=== PATIENT | female | born 1985 | race African-American/Black ===

== ENCOUNTER 2020-04-01 08:17 | Emergency (ER) | payer BC ==
[2020-04-01] MEDS ORDERED: dexAMETHasone 10 MG/ML VIAL ONE (09:14)
[2020-04-01] MEDS ORDERED: MEPERIDINE HCL 25 MG/ML SYR ONE (09:14)
[2020-04-01] MEDS ORDERED: NA CHLORIDE 0.9% 1,000 ML ONE (09:14)
[2020-04-01] MEDS ORDERED: MORPHINE 4 MG/ML SYR ONE (09:30)
[2020-04-01 09:31] LABS: Absolute Lymphocytes (CBC) 1.5 K/uL (0.7-4.9); Basophils % 0.6 % (0-1.3); Hematocrit 41.9 % (36.0-45.0); MPV 9.6 fL (7.6-11.3); RBC Red Blood Cell Count 5.13 M/uL (3.86-4.86)
[2020-04-01 09:37] LABS: ALT/SGPT 50 U/L (12-78); AST/SGOT 34 U/L (15-37); Albumin 3.6 g/dL (3.4-5.0); Alkaline Phosphatase 98 U/L (45-117); BUN Blood Urea Nitrogen 8 mg/dL (7-18); Bicarbonate 27 mmol/L (21-32); Bilirubin Direct 0.1 mg/dL (0-0.2); Bilirubin Total 0.6 mg/dL (0.2-1.0); Glucose Level 96 mg/dL (74-106); Potassium 3.7 mmol/L (3.5-5.1); Protein, Total 7.8 g/dL (6.4-8.2); Sodium Level 143 mmol/L (136-145)
--- NOTE | 2020-04-01 10:00 | RAD REPORT ---
EXAM DESCRIPTION: CT - Head Brain Wo Cont - 04/01/2020 9:34 am CLINICAL HISTORY: HEADACHE COMPARISON: No comparisons TECHNIQUE: Axial 5 mm thick images of the head were obtained without IV contrast. All CT scans are performed using dose optimization technique as appropriate and may include automated exposure control or mA/KV adjustment according to patient size. FINDINGS: No intracranial hemorrhage, mass, edema or shift of mid-line structures. No acute infarcti on changes seen. No abnormal extra-axial fluid collections. Ventricles are normal. Mastoid air cells and visualized portions of the paranasal sinuses are clear. No acute bony findings. IMPRESSION: Negative non-contrast CT head examination.
[2020-04-01 10:22] LABS: SARS-COV-2 RT PCR NEGATIVE (NEGATIVE)
--- NOTE | 2020-04-01 10:26 | EDPHYS ---
Physician Documentation [facility] Name: Sonia Perera Age: 35 yrs Sex: Female : 1985 Arrival Date: 04/01/2020 Time: 08: Bed 20 Private MD: ED Physician Jose Bateman HPI: 04/01 09:39 This 35 yrs old Black Female presents to ER via Ambulatory with complaints of Headache, rn Arm Problem, Facial Tightness. 09:39 The patient complains of pain to the forehead and left head. The patient describes the rn headache as aching. Onset: The symptoms/episode began/occurred 3 day(s) ago. Associated signs and symptoms: Pertinent positives: paresthesias, Pertinent negatives: altered mental status, fever, neck stiffness, rash, vision loss, vomiting, weakness, vertigo. Severity of symptoms: At its worst the pain was moderate, in the emergency department the pain is unchanged. The symptoms are alleviated by nothing. the symptoms are aggravated by nothing. The patient has not experienced similar symptoms in the past. The patient has not recently seen a physician. Reports left sided headache for 3 days, no hx of migraines, no head trauma, no fever/vomiting/focal weakness/vision loss. Denies famhx of early stroke/brain tumor/aneurysm. Reports initially helped with OTC meds but now not helping. Reports left face "feels weird", but not weak. Reports intermittent tingling left arm as well, no involvement of left leg. . 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 - Social history:: Smoking status: Patient denies any tobacco usage or history of. - Family history:: not pertinent. - Hospitalizations: : No recent hospitalization is reported. ROS: 09:39 Constitutional: Negative for fever, chills, and weight loss, Eyes: Negative for injury, rn pain, redness, and discharge, ENT: Negative for injury, pain, and discharge, Neck: Negative for injury, pain, and swelling, Cardiovascular: Negative for chest pain, palpitations, and edema, Respiratory: Negative for shortness of breath, cough, wheezing, and pleuritic chest pain, Abdomen/GI: Negative for nausea, vomiting, diarrhea, and constipation, Back: Negative for injury and pain, MS/Extremity: Negative for injury and deformity, Skin: Negative for injury, rash, and discoloration, Neuro: Negative for weakness, and seizure. Exam: 09:39 Constitutional: This is a well developed, well nourished patient who is awake, alert, rn and in no acute distress. Head/Face: Normocephalic, atraumatic. Eyes: Pupils equal round and reactive to light, extra-ocular motions intact. Lids and lashes normal. Conjunctiva and sclera are non-icteric and not injected. Cornea within normal limits. Periorbital areas with no swelling, redness, or edema. Neck: Trachea midline, no masses palpated, and no cervical lymphadenopathy. Supple, full range of motion without nuchal rigidity, or vertebral point tenderness. No Meningismus. Cardiovascular: Regular rate and rhythm. No pulse deficits. Respiratory: No increased work of breathing, no retractions or nasal flaring. Abdomen/GI: soft, non-tender Skin: Warm, dry with normal turgor. Normal color with no rashes, no lesions, and no evidence of cellulitis. MS/ Extremity: Pulses equal, no cyanosis. Neurovascular intact. Full, normal range of motion. Equal circumference. Neuro: Awake and alert, GCS 15, oriented to person, place, time, and situation. Cranial nerves II-XII grossly intact. Motor strength 5/5 in all extremities. Sensory grossly intact. Cerebellar exam normal. Normal gait. Vital Signs: 08:25 BP 132 / 84; Pulse 80; Resp 16 S; Temp 97.8; Pulse Ox 99% on R/A; Weight 114.31 kg; iw Height 5 ft. 3 in. (160.02 cm); Pain 5/10; 10:48 BP 128 / 77; Pulse 78; Resp 16 S; Pulse Ox 99% on R/A; jd3 08:25 Body Mass Index 44.64 (114.31 kg, 160.02 cm) iw [place] Coma Score: 10:23 Eye Response: spontaneous(4). Verbal Response: oriented(5). Motor Response: obeys rn commands(6). Total: 15. MDM: 08:33 Patient medically screened. rn 10:23 Differential diagnosis: migraine, tension headache, vasomotor headache, COVID, mono, rn complicated migraine, atypical migraine. Data reviewed: vital signs, nurses notes, lab test result(s), radiologic studies, CT scan, and as a result, I will discharge patient. Counseling: I had a detailed discussion with the patient and/or guardian regarding: the historical points, exam findings, and any diagnostic results supporting the discharge/admit diagnosis, lab results, radiology results, the need for outpatient follow up, to return to the emergency department if symptoms worsen or persist or if there are any questions or concerns that arise at home. Response to treatment: the patient's symptoms have mildly improved after treatment, and as a result, I will discharge patient. Special discussion: I discussed with the patient/guardian in detail that at this point there is no indication for admission to the hospital. It is understood, however, that if the symptoms persist or worsen the patient needs to return immediately for re-evaluation. 04/01 08:46 Order name: [place] Screen Profile; Complete Time: 09:59 04/01 08:46 Order name: CBC with Diff; Complete Time: 09:59 04/01 08:46 Order name: Basic Metabolic Panel; Complete Time: 09:59 04/01 08:46 Order name: LFT's; Complete Time: 09:59 rn 04/01 08:46 Order name: CT Head Brain wo Cont; Complete Time: 10:04 rn 04/01 08:46 Order name: IV Start; Complete Time: 09:10 rn 04/01 10:22 Order name: COVID-19/FLU A+B; Complete Time: 10:23 EDMS Administered Medications: 09:13 Not Given (Patient Refused): Demerol 25 mg IVP once; RASS on ADMIN: Combtv4, Very jd3 Agttd3, Agttd2, Rstlss1, AlertClm0, Drwsy-1, Lt Sdtn-2, Mod Sdtn-3, Dp Sdtn-4, UnArsble-5 09:19 Drug: morphine 4 mg Route: IVP; Site: left antecubital; jd3 10:00 Follow up: Response: No adverse reaction; RASS: Alert and Calm (0) jd3 09:20 Drug: NS 0.9% 1000 ml Route: IV; Rate: 1000 ml; Site: left antecubital; jd3 10:00 Follow up: Response: No adverse reaction; IV Status: Completed infusion; IV Intake: jd3 1000ml 09:20 Drug: Decadron - Dexamethasone 10 mg Route: IVP; Site: left antecubital; jd3 10:00 Follow up: Response: No adverse reaction jd3 Disposition: 04/01/20 10:25 Discharged to Home. Impression: Headache, Infectious mononucleosis. - Condition is Stable. - Discharge Instructions: General Headache Without Cause, Infectious Mononucleosis. - Medication Reconciliation Form, Thank You Letter, Antibiotic Education, Prescription Opioid Use form. - Follow up: Private Physician; When: As needed; Reason: Recheck today's complaints, Re-evaluation by your physician. - Problem is new. - Symptoms have improved. Signatures: Dispatcher [employer] Nancy Flores RN RN iw Nieto, Roman, MD MD rn Davies, Jonathon, RN RN jd3 Corrections: (The following items were deleted from the chart) 09:34 08:46 CORONAVIRUS+MR.LAB.BRZ ordered. [facility] 11:03 10:25 04/01/2020 10:25 Discharged to Home. Impression: Headache; Infectious iw mononucleosis. Condition is Stable. Forms are Medication Reconciliation Form, Thank You Letter, Antibiotic Education, Prescription Opioid Use. Follow up: Private Physician; When: As needed; Reason: Recheck today's complaints, Re-evaluation by your physician. Problem is new. Symptoms have improved. rn
--- NOTE | 2020-04-01 10:26 | ER ---
Nurse's Notes [facility] Name: Sonia Perera Age: 35 yrs Sex: Female : 1985 Arrival Date: 04/01/2020 Time: 08:21 Bed 20 Private MD: Diagnosis: Headache;Infectious mononucleosis Presentation: 04/01 08:25 Chief complaint: Patient states: has been having tight pressure headache X 3 days, iw taking OTC medicine but no relief , has been having difficulty thinking and this morning she woke up with tightness in left side of face and left arm feels tight also , also has been having increasing RUQ pain , has recurrent pain due to liver issue, pain has been worse X 2 days. Coronavirus screen: At this time, the client does not indicate any symptoms associated with coronavirus-19. Ebola Screen: Patient negative for fever greater than or equal to 101.5 degrees Fahrenheit, and additional compatible Ebola Virus Disease symptoms Patient denies exposure to infectious person. Patient denies travel to an Ebola-affected area in the 21 days before illness onset. No symptoms or risks identified at this time. Initial Sepsis Screen: Does the patient meet any 2 criteria? No. Patient's initial sepsis screen is negative. Does the patient have a suspected source of infection? No. Patient's initial sepsis screen is negative. Risk Assessment: Do you want to hurt yourself or someone else? Patient reports no desire to harm self or others. Onset of symptoms was March 29, 2020. 08:25 Method Of Arrival: Ambulatory iw 08:25 Acuity: ANIKET 3 iw Triage Assessment: 09:26 Headache History: Denies prior headaches. 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 - Social history:: Smoking status: Patient denies any tobacco usage or history of. - Family history:: not pertinent. - Hospitalizations: : No recent hospitalization is reported. Screenin:26 Abuse screen: Denies threats or abuse. Nutritional screening: No deficits noted. jd3 Tuberculosis screening: No symptoms or risk factors identified. Fall Risk Ambulatory Aid- None/Bed Rest/Nurse Assist (0 pts). Gait- Normal/Bed Rest/Wheelchair (0 pts) Mental Status- Oriented to own ability (0 pts). Total Sandoval Fall Scale indicates No Risk (0-24 pts). Assessment: 09:22 General: Appears in no apparent distress. comfortable, Behavior is calm, cooperative, jd3 appropriate for age. Pain: Complains of pain in head and left arm Quality of pain is described as aching. Neuro: Level of Consciousness is awake, alert, obeys commands, Oriented to person, place, time, situation. Cardiovascular: Denies chest pain, Capillary refill < 3 seconds Patient's skin is warm and dry. Respiratory: Airway is patent Respiratory effort is even, unlabored, Respiratory pattern is regular, symmetrical, Denies cough, shortness of breath. GI: No signs and/or symptoms were reported involving the gastrointestinal system. : No signs and/or symptoms were reported regarding the genitourinary system. EENT: No signs and/or symptoms were reported regarding the EENT system. Derm: Skin is intact, Skin is dry, Skin is normal, Skin temperature is warm. Musculoskeletal: Circulation, motion, and sensation intact. Range of motion: intact in all extremities. 10:00 Reassessment: Patient appears in no apparent distress at this time. Patient and/or jd3 family updated on plan of care and expected duration. Pain level reassessed. Patient is alert, oriented x 3, equal unlabored respirations, skin warm/dry/pink. 11:00 Reassessment: Patient appears in no apparent distress at this time. Patient and/or jd3 family updated on plan of care and expected duration. Pain level reassessed. Patient is alert, oriented x 3, equal unlabored respirations, skin warm/dry/pink. Vital Signs: 08:25 BP 132 / 84; Pulse 80; Resp 16 S; Temp 97.8; Pulse Ox 99% on R/A; Weight 114.31 kg; iw Height 5 ft. 3 in. (160.02 cm); Pain 5/10; 10:48 BP 128 / 77; Pulse 78; Resp 16 S; Pulse Ox 99% on R/A; jd3 08:25 Body Mass Index 44.64 (114.31 kg, 160.02 cm) iw [place] Coma Score: 10:23 Eye Response: spontaneous(4). Verbal Response: oriented(5). Motor Response: obeys rn commands(6). Total: 15. ED Course: 08:21 Patient arrived in ED. ag5 08:28 Triage completed. iw 08:32 Arm band placed on. iw 08:33 Jose Bateman MD is Attending Physician. rn 08:36 Howard Gómez RN is Primary Nurse. jd3 08:52 Patient has correct armband on for positive identification. Placed in gown. Bed in low mh5 position. Call light in reach. Side rails up X 1. Warm blanket given. qm nurse on. Pulse ox on. NIBP on. 09:10 Flu Sent. mh5 09:11 [place] Screen Profile Sent. mh5 09:11 CBC with Diff Sent. mh5 09:11 Basic Metabolic Panel Sent. mh5 09:11 LFT's Sent. mh5 09:11 Initial lab(s) drawn, by me, sent to lab. COVID swab sent to lab. Flu and/or RSV swab mh5 sent to lab. Inserted saline lock: 20 gauge in left antecubital area, using aseptic technique. Blood collected. 09:34 CT Head Brain wo Cont In Process Unspecified. EDMS 10:49 No provider procedures requiring assistance completed. IV discontinued, intact, jd3 bleeding controlled, No redness/swelling at site. Pressure dressing applied. Administered Medications: 09:13 Not Given (Patient Refused): Demerol 25 mg IVP once; RASS on ADMIN: Combtv4, Very jd3 Agttd3, Agttd2, Rstlss1, AlertClm0, Drwsy-1, Lt Sdtn-2, Mod Sdtn-3, Dp Sdtn-4, UnArsble-5 09:19 Drug: morphine 4 mg Route: IVP; Site: left antecubital; jd3 10:00 Follow up: Response: No adverse reaction; RASS: Alert and Calm (0) jd3 09:20 Drug: NS 0.9% 1000 ml Route: IV; Rate: 1000 ml; Site: left antecubital; jd3 10:00 Follow up: Response: No adverse reaction; IV Status: Completed infusion; IV Intake: jd3 1000ml 09:20 Drug: Decadron - Dexamethasone 10 mg Route: IVP; Site: left antecubital; jd3 10:00 Follow up: Response: No adverse reaction jd3 Intake: 10:00 IV: 1000ml; Total: 1000ml. jd3 Outcome: 10:25 Discharge ordered by . rn 10:49 Discharged to home ambulatory, with family. jd3 10:49 Condition: stable 10:49 Discharge instructions given to patient, Instructed on discharge instructions, follow up and referral plans. Demonstrated understanding of instructions, follow-up care. 11:03 Patient left the ED. iw Signatures: Dispatcher [employer] Nancy Flores RN RN iw Nieto, Roman, MD MD rn Martinez, Maria [facility] Howard Gómez RN RN jd3 Gaskin, Ajare 5 Corrections: (The following items were deleted from the chart) 09:34 09:10 CORONAVIRUS+MR.LAB.BRZ drawn and sent. [facility] [id number]
[2020-04-01 11:14] VITALS: TEMP 97.8; O2SAT 99
[2020-04-01 11:16] VITALS: BP 128/77
== END 2020-04-01 11:03 | disposition home or self-care (01) ==
LOC: ER 08:17
DX: O98.819 Other maternal infectious and parasitic diseases complicating pregnancy, unspecified trimester (principal); O98.519 Other viral diseases complicating pregnancy, unspecified trimester; B27.90 Infectious mononucleosis, unspecified without complication; Z3A.00 Weeks of gestation of pregnancy not specified; Z20.822 Contact with and (suspected) exposure to COVID-19
CPT/HCPCS: 96361; 85025; 80048; 36415; 86308; 80076; 0240U; 70450; 96375; 96374; 99284; J1100; J7030; J2175